=== PATIENT | female | born 1985 | race Two or more races ===

== ENCOUNTER 2017-07-01 12:26 | Observation (INO) | payer OTHER ==
[~2017-07-01] VITALS: Ht 175.3 cm; Wt 76.7 kg
[2017-07-01 12:26] VITALS: BP 119/79
[2017-07-01 14:19] LABS: Urine Bacteria FEW /hpf (None Seen); Urine Blood Negative /uL (Negative); Urine Mucus FEW (None Seen); Urine Specific Gravity 1.013 (1.001-1.035); Urine WBC 17 /hpf (0 - 5)
[2017-07-01 14:28] LABS: Alcohol, Urine < 3.0 mg/dL (0-5); Amphetamine Screen, Urine NEGATIVE (NEGATIVE); Barbiturate Scree,Urine NEGATIVE (NEGATIVE); Benzodiazephine Screen, Urine NEGATIVE (NEGATIVE); Cannabinoid Screen, Urine NEGATIVE (NEGATIVE); Cocaine Screen, Urine NEGATIVE (NEGATIVE); Opiate Scree,Urine NEGATIVE (NEGATIVE); Phencyclidine Screen, Urine NEGATIVE (NEGATIVE)
[2017-07-01] MEDS ORDERED: PREN-129 OR (14:45)
[2017-07-01] MEDS ORDERED: FERR-20 PO (14:46)
== END 2017-07-01 14:45 | disposition home or self-care (01) | DRG 566 ==
LOC: ER 12:26 → LDRP 12:27 → EDSTATUS 13:24
PROVIDERS: ADMIT Specialist; ATTEND Specialist
DX: O26.893 Other specified pregnancy related conditions, third trimester (principal); O62.9 Abnormality of forces of labor, unspecified; M54.5 Low back pain; Z3A.38 38 weeks gestation of pregnancy
CPT/HCPCS: 59025; 80307; 81001; 81002; G0378

== ENCOUNTER 2019-11-12 16:46 | Emergency (ER) | payer OTHER ==
[~2019-11-12 16:46] MED LIST: FERR-20 PO; PREN-129 OR
[2019-11-12 16:53] VITALS: BP_DIAS 81
[2019-11-12] MEDS ORDERED: KETOROLAC TROMETH 60MG/2ML VIAL IM ONE (17:30)
[2019-11-12 17:38] LABS: Basophils # (auto) 0 10 ^3/uL (0-0.2); Basophils % (auto) 0.6 % (0.0-2.0); Eosinophils # (auto) 0 10 ^3/uL (0-0.8); Hematocrit 41.7 % (36.0-46.0); Hemoglobin 13.5 g/dL (12.2-16.2); Lymphocytes # (auto) 1.5 10 ^3/uL (0.4-5.4); Lymphocytes % (auto) 30.1 % (10.0-50.0); Mean Corpuscular Hemoglobin 30.2 pg (28.0-32.0); Mean Corpuscular Hgb Conc. 32.3 g/dL (32.0-36.0); Mean Corpuscular Volume 93.5 fL (80.0-100.0); Monocytes # (auto) 0.3 10 ^3/uL (0-1.3); Neutrophils # (auto) 3.1 10 ^3/uL (1.6-8.6); Neutrophils % (auto) 62.3 % (37.0-80.0); Platelet Count (auto) 191 10^3/uL (140-450); Red Blood Cells 4.46 10^6/uL (4.0-5.20); Red Cell Distribution Width 13.8 % (11.8-14.3); White Blood Cell 4.9 10^3/uL (4.4-10.8)
[2019-11-12 17:55] LABS: BUN/Creatinine Ratio 16.7; Calcium 8.9 mg/dL (8.5-10.1); Potassium 3.9 mmol/L (3.5-5.1)
[2019-11-12 18:02] VITALS: BP_SYST 128
[2019-11-12 18:02] LABS: Urine Bacteria FEW /hpf (None Seen); Urine Blood Negative /uL (Negative); Urine Mucus FEW (None Seen); Urine Specific Gravity 1.026 (1.001-1.035); Urine WBC 27 /hpf (0 - 5)
== END 2019-11-12 18:14 | disposition home or self-care (01) ==
LOC: ER 16:46
DX: M79.641 Pain in right hand (principal); N39.0 Urinary tract infection, site not specified
CPT/HCPCS: 36415; 80048; 81001; 85025; 85652; 96372; 99283; J1885

== ENCOUNTER 2020-05-21 09:47 | Emergency (ER) | payer OTHER ==
[~2020-05-21] VITALS: Ht 172.7 cm; Wt 65.8 kg
[2020-05-21 10:19] VITALS: BP 110/79
[2020-05-21] MEDS ORDERED: cefTRIAXone SOD 1,000 MG VL IM ONE (12:15)
[2020-05-21] MEDS ORDERED: methylPREDNISolone SOD SUCC 125 MG/2 ML VL IM ONE (12:15)
== END 2020-05-21 12:55 | disposition home or self-care (01) ==
LOC: ER 09:47
DX: J02.0 Streptococcal pharyngitis (principal); Z79.899 Other long term (current) drug therapy; Z20.822 Contact with and (suspected) exposure to COVID-19
CPT/HCPCS: 36415; 87426; 87880; 96372; 99284; J0696; J2930

== ENCOUNTER 2021-04-23 10:10 | Emergency (ER) | payer OTHER ==
[~2021-04-23] VITALS: Ht 175.3 cm; Wt 73.5 kg
[2021-04-23 13:09] LABS: Urine Bacteria NONE SEEN /hpf (None Seen); Urine Blood 2+ /uL (Negative); Urine Mucus FEW (None Seen); Urine WBC 1 /hpf (0 - 5)
[2021-04-23 14:04] VITALS: BP 117/92
[2021-04-23] MEDS ORDERED: TAM04C PO (14:59)
[2021-04-23] MEDS ORDERED: IBUP800T27 PO (14:59)
== END 2021-04-23 15:03 | disposition home or self-care (01) ==
LOC: ER 10:10
DX: N20.0 Calculus of kidney (principal); Z79.899 Other long term (current) drug therapy
CPT/HCPCS: 74176; 81001; 81025

== ENCOUNTER 2022-04-20 02:33 | Emergency (ER) | payer OTHER ==
[~2022-04-20] VITALS: Ht 175.3 cm; Wt 71.0 kg
[~2022-04-20 02:33] MED LIST changes: +IBUP800T27 PO; +TAM04C PO
[2022-04-20 02:58] VITALS: BP 135/88
== END 2022-04-20 04:23 | disposition home or self-care (01) ==
LOC: ER 02:33 → EEVIPCON 02:33 → ER 04:23
DX: O26.893 Other specified pregnancy related conditions, third trimester (principal); Z3A.29 29 weeks gestation of pregnancy